=== PATIENT | female | born 1985 | race African-American/Black ===

== ENCOUNTER 2019-08-17 21:44 | Emergency (ER) | payer OTHER ==
[~2019-08-17] VITALS: Ht 167.6 cm; Wt 74.8 kg
[2019-08-17 22:02] LABS: URINE BILIRUBIN NEGATIVE (Negative); URINE BLOOD TRACE (Negative); URINE CLARITY SL CLOUDY; URINE COLOR YELLOW; URINE GLUCOSE-RANDOM* NEGATIVE (Negative); URINE KETONES NEGATIVE (Negative); URINE NITRITE-REFLEX NEGATIVE (Negative); URINE PROTEIN (DIPSTICK) NEGATIVE (Negative); URINE UROBILINOGEN 0.2 E.U./dl (0.2-1.0)
[2019-08-17 22:09] LABS: URINE LEUKOCYTES-REFLEX 3+ (Negative)
[2019-08-17 22:12] LABS: CASTS None Seen /LPF (None Seen); CRYSTALS None Seen /LPF (None Seen); MUCUS 0-3 Light strn/LPF (None Seen); SQUAMOUS 0-3 Few /LPF (0-3); URINE RBC 3-10 Few /HPF (0-2); WBC CLUMPS Few (None Seen)
[2019-08-17 22:25] LABS: ABSOLUTE NEUTROPHILS 10.1 thou/uL (1.4-8.2); BASOPHILS 0.4 % (0.0-2.0); EOSINOPHILS 0.6 % (0.0-3.0); HEMATOCRIT 33.7 % (37.0-47.0); HEMOGLOBIN 11.1 gm/dL (12.0-15.0); LYMPHOCYTES 16.9 % (24.0-44.0); MCH 26.5 pg (26.0-34.0); MCHC 32.9 g/dL (28.0-37.0); MCV 80.7 fL (80.0-100.0); MONOCYTES 5.5 % (1.0-8.0); PLATELET COUNT 415 thou/uL (150-400); POLYS 76.6 % (36.0-66.0); RBC 4.18 mil/uL (4.20-5.00); RDW 19.8 % (10.5-14.5); WBC 13.1 thou/uL (4.0-11.0)
[2019-08-17 22:32] LABS: CALCIUM 9.4 mg/dL (8.5-10.1); CREATININE 0.7 mg/dL (0.6-1.0); POTASSIUM 3.5 mmol/L (3.5-5.1)
[2019-08-17 22:39] LABS: ALBUMIN 3.3 g/dL (3.4-5.0); TOTAL BILIRUBIN 0.1 mg/dL (<0.1-1.0); TOTAL PROTEIN 7.5 g/dL (6.4-8.2)
[2019-08-18] MEDS ORDERED: REGLAN 10 MG TA10 MG PO (00:41)
[2019-08-18] MEDS ORDERED: FLAGYL500 M1 PO (01:03)
[2019-08-18 02:01] VITALS: BP 105/46
== END 2019-08-18 02:01 | disposition home or self-care (01) ==
LOC: ER 21:44
PROVIDERS: Nurse Practitioner Family
DX: O21.8 Other vomiting complicating pregnancy (principal); O26.891 Other specified pregnancy related conditions, first trimester; A59.01 Trichomonal vulvovaginitis; N89.8 Other specified noninflammatory disorders of vagina; Z3A.10 10 weeks gestation of pregnancy